=== PATIENT | male | born 1995 | race Two or more races ===

== ENCOUNTER 2018-11-15 08:01 | Emergency (ER) | payer MEDICAID ==
[2018-11-15 08:10] VITALS: BP 131/89
[2018-11-15] MEDS ORDERED: NAPROXEN 250 MG TABLET PO STA (08:12)
--- NOTE | 2018-11-15 08:15 | ED Physician Documentation ---
PD HPI UPPER EXT INJURY - Stated complaint Stated Complaint: HAND PX - Chief complaint Chief Complaint: Ext Problem - History obtained from History obtained from: Patient - History of Present Illness Location: Right, Wrist, Hand Type of injury: Other (No specific injury.) Timing - duration: Weeks (1) Timing - details: Waxing and waning Associated symptoms: Tingling, Swelling Similar symptoms before: Diagnosis (Diagnosed with carpal tunnel syndrome about two years ago.) - Additonal information Additional information: The patient is a 23-year-old male who presents with swelling of his right hand, waxing and waning for the past week. It is worse at night. He notices that his hand goes numb, particularly in the little finger. It is similar to symptoms he had about 2 years ago when he was diagnosed with carpal tunnel syndrome. He is right-hand dominant. 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 Review of Systems Constitutional: denies: Fever Nose: denies: Congestion Throat: denies: Sore throat Cardiac: denies: Chest pain / pressure Respiratory: denies: Dyspnea, Cough GI: denies: Abdominal Pain, Nausea, Vomiting Skin: denies: Rash Musculoskeletal: reports: Extremity swelling (right hand). denies: Neck pain, Back pain Neurologic: reports: Numbness (Intermittently right hand.). denies: Headache PD PAST MEDICAL HISTORY - Past Medical History Neuro: None Endocrine/Autoimmune: None - Present Medications Home Medications: Ambulatory Orders Medication Instructions Recorded Confirmed Naproxen [Naprosyn] 500 mg PO BID #30 tablet 11/15/18 - Allergies Allergies/Adverse Reactions: Allergies Allergy/AdvReac Type Severity Reaction Status Date / Time No Known Drug Allergies Allergy Verified 11/15/18 08:08 PD ED PE NORMAL - Vitals Vital signs reviewed: Yes (normal) - General General: Alert and oriented X 3, Well developed/nourished - HEENT HEENT: Atraumatic - Neck Neck: No adenopathy - Cardiac Cardiac: RRR - Respiratory Respiratory: No respiratory distress, Clear bilaterally - Derm Derm: No rash - Extremities Extremities: No deformity, No tenderness to palpate, Other (There is no obvious swelling detected of the right hand, and no focal tenderness to palpation. Positive Phalen sign. Negative Tinel's test. No motor deficit detected.) - Neuro Neuro: Alert and oriented X 3, No motor deficit, No sensory deficit, Normal speech Results - Vitals Vitals: Oxygen O2 Source Room air - Labs Labs: Laboratory Tests 11/15/18 08:30 TSH 1.78 - Rads (name of study) right wrist Radiology: Prelim report reviewed, EMP read contemporaneously, See rad report (A small broad-based bony spur on the radial side of the distal metaphysis of the radius, without soft tissue swelling. Otherwise negative wrist radiography.) PD MEDICAL DECISION MAKING - ED course Complexity details: reviewed results, re-evaluated patient, considered differential, d/w patient ED course: The patient's presentation is suggestive of carpal tunnel syndrome, although his exam is by no means definitive. X-ray of the right wrist reveals a bone spur on the radial aspect of the distal radius, and it is unclear whether that plays a role in the patient's symptoms. His TSH is normal. Treatment in the emergency department included administration of Naprosyn 500 mg orally, and application of a Velcro wrist splint. I discussed with him symptomatic treatment, outpatient follow-up, as well as potentially worrisome signs or symptoms that should prompt reevaluation in the emergency department. Departure - Departure Disposition: 01 Home, Self Care Clinical Impression: Bone spur, Carpal tunnel syndrome of right wrist Condition: Stable Instructions: ED Carpal Tunnel Follow-Up: [facility] [Provider Group] Prescriptions: Naproxen [Naprosyn] 500 mg PO BID #30 tablet Comments: You can wear the Velcro wrist splint if it provides comfort. Take Naprosyn twice daily as prescribed. Follow-up with orthopedics. Call to schedule a follow-up appointment. Return to the emergency department if you develop increasing pain, persistent numbness or weakness, or otherwise worsening symptoms. Discharge Date/Time: 11/15/18 09:42
--- NOTE | 2018-11-15 08:37 | XRAY Report ---
Reason: numbness, swelling right hand; ? carpal tunnel syn Procedure Date: 11/15/2018 Accession Number: [id number] / [id number] Procedure: XR - Wrist 3 View RT CPT Code: FULL RESULT: EXAM: RIGHT WRIST RADIOGRAPHY EXAM DATE: 11/15/2018 08:25 AM. CLINICAL HISTORY: Numbness, swelling right hand; clinical suspicion for carpal tunnel syn. COMPARISON: None. TECHNIQUE: 3 views. FINDINGS: Bones: There is a broad base bony spur on the radial side of the distal metaphysis of the radius, 3 x 7 mm without associated adjacent soft tissue swelling. No fractures or bony destructive lesion. Joints: No significant degenerative process. No subluxations. Soft Tissues: No soft tissue calcification or soft tissue swelling. IMPRESSION: A small broad-based bony spur on the radial side of the distal metaphysis of the radius without soft tissue swelling; otherwise, negative wrist radiography. RADIA
== END 2018-11-15 09:42 | disposition home or self-care (01) ==
LOC: ED 08:01
DX: M77.8 Other enthesopathies, not elsewhere classified (principal); G56.01 Carpal tunnel syndrome, right upper limb
CPT/HCPCS: 36415; 73110; 84443; 99283; A9270

== ENCOUNTER 2021-01-29 16:25 | Outpatient (CLI) | payer MEDICAID ==
[2021-01-30 02:11] LABS: CHLAMYDIA TRACHOMATIS DNA NEGATIVE (NEGATIVE); NEISSERIA GONORRHOEAE DNA NEGATIVE (NEGATIVE)
[2021-01-31 10:31] LABS: HIV AG/AB 4TH GEN NON-REACTIVE (NON-REACTIVE)
[2021-01-31 12:16] LABS: HEPATITIS C ANTIBODY NON-REACTIVE (NON-REACTIVE)
== END 2021-01-29 16:26 | disposition home or self-care (01) ==
LOC: LAB.N 16:25
PROVIDERS: ATTEND Nurse Practitioner Family
DX: Z11.3 Encounter for screening for infections with a predominantly sexual mode of transmission (principal)
CPT/HCPCS: 36415; 86592; 86803; 87389; 87491; 87591; 87661

== ENCOUNTER 2021-01-29 17:12 | Outpatient (CLI) | payer MEDICAID ==
--- NOTE | 2021-01-29 19:16 | XRAY Report ---
PROCEDURE: Cervical Spine 2 View INDICATIONS: NECK PX TECHNIQUE: 3 view(s) of the cervical spine were acquired. COMPARISON: None. FINDINGS: Bones: No fractures or dislocations to the C7-T1 level. Straightening of normal cervical lordosis i s seen. The lateral masses of C1 appear intact on the odontoid view. No suspicious bony lesions. Soft tissues: No prevertebral soft tissue swelling. IMPRESSION: Straightening of normal cervical lordosis. No compression fracture or spondylolisthesis. Reviewed by: Evert Ozuna MD on 01/29/2021 6:14 PM ZAMZAM Approved by: Evert Ozuna MD on 01/29/2021 6:14 PM ZAMZAM Station ID: [id number]
== END 2021-01-29 17:13 | disposition home or self-care (01) ==
LOC: DI.N 17:12
PROVIDERS: ATTEND Nurse Practitioner Family
DX: M54.2 Cervicalgia (principal); Z11.3 Encounter for screening for infections with a predominantly sexual mode of transmission
CPT/HCPCS: 36415; 86592; 86803; 87389; 87491; 87591; 87661

== ENCOUNTER 2022-08-12 14:28 | Outpatient (CLI) | payer MEDICAID ==
[~2022-08-12 14:28] MED LIST: GADOBUTROL 10 MMOL/10 ML VIAL ONE
[2022-08-12] MEDS ORDERED: GADOBUTROL 10 MMOL/10 ML VIAL IVP ONE (17:08)
--- NOTE | 2022-08-12 18:15 | MRI Report ---
PROCEDURE: BRAIN W/WO INDICATIONS: MIXED HEADACHE CONTRAST: GADAVIST 8.2ML TECHNIQUE: Noncontrast axial T1 spin echo, axial T2 fast spin echo, sagittal and axial FLAIR, coronal T2 fast sp in echo, axial gradient echo, axial diffusion and ADC through the brain. After the administration of contrast, axial and coronal T1 spin echo with fat saturation through the brain. COMPARISON: None. FINDINGS: Image quality: Excellent. CSF spaces: Basal cisterns are patent. No extra-axial fluid collections. Ventricles are normal in size and shape. Brain: No midline shift. No intracranial bleeds or masses. No abnormal intracranial enhancement. There is cerebral volume loss for age. There is periventricular white matter chronic small vessel is chemic change. The brainstem appears normal. Diffusion-weighted images demonstrate no acute ischemi c insults. No chronic ischemic insults. Normal intravascular flow voids are present. Skull and face: Calvarial marrow is normal in signal. Orbits appear normal. Sinuses: Sinuses and mastoids appear clear. IMPRESSION: A cause of headache cannot be seen on these images. No masses or abnormal enhancement can be seen. Reviewed by: Jose Green MD on 08/12/2022 5:13 PM ZAMZAM Approved by: Jose Green MD on 08/12/2022 5:13 PM ZAMZAM Station ID: [id number]
== END 2022-08-12 14:29 | disposition home or self-care (01) ==
LOC: DI 14:28
PROVIDERS: ATTEND Physician Assistant
DX: R51.9 Headache, unspecified (principal)
CPT/HCPCS: 70553; A9585

== ENCOUNTER 2022-12-15 17:28 | Emergency (ER) | payer MEDICAID ==
--- NOTE | 2022-12-15 19:23 | XRAY Report ---
PROCEDURE: Finger(s) RT INDICATIONS: R finger pain vs shelf TECHNIQUE: AP hand, 2 views of the fifth finger(s) acquired. COMPARISON: Right wrist radiographs 11/15/2018. FINDINGS: Bones: No fractures or dislocations. No suspicious bony lesions. Soft tissues: No suspicious soft tissue calcifications. IMPRESSION: No acute osseous abnormality. Reviewed by: Rodrigue Tam MD on 12/15/2022 7:22 PM PST Approved by: Rodrigue Tam MD on 12/15/2022 7:22 PM PST Station ID: [id number]
[2022-12-15] MEDS: LIDOCAINE 2% 10 ML MDV SUBQ ONE ×2 (20:21→20:27)
[2022-12-15] MEDS ORDERED: BUFFERED LIDOCAINE 10 ML SYRINGE SUBQ STA (20:24)
[2022-12-15 20:27] VITALS: BP 135/81
--- NOTE | 2022-12-15 20:56 | ED Physician Documentation ---
PD HPI UPPER EXT INJURY - Stated complaint Stated Complaint: Finger Pain - Chief complaint Chief Complaint: Ext Problem - History obtained from History obtained from: Patient - History of Present Illness Location: Right, Finger (5th) Pain level max: 7 Pain level now: 6 Improved by: Nothing Worsened by: Moving, Palpating Associated symptoms: No: Weakness, Numbness, Tingling Contributing factors: No: Anticoagulated - Additonal information Additional information: 27-year-old male presents to the emergency department with a crush injury to the distal tip of the right index finger. This occurred several hours prior to arrival. He is continuing to have pain. Patient is right handed. Review of Systems Constitutional: denies: Fever, Chills Skin: denies: Rash PD PAST MEDICAL HISTORY - Past Medical History Past Medical History: No Neuro: None Endocrine/Autoimmune: None - Past Surgical History Past Surgical History: Yes - Present Medications Home Medications: Ambulatory Orders Medication Instructions Recorded Confirmed No Known Home Medications 12/15/22 12/15/22 - Allergies Allergies/Adverse Reactions: Allergies Allergy/AdvReac Type Severity Reaction Status Date / Time No Known Drug Allergies Allergy Verified 11/15/18 08:08 - Social History Does the pt smoke?: Yes Smoking Status: Current every day smoker Substance Use and Type: Marijuana - Immunizations Immunizations are current?: Yes PD ED PE NORMAL - Vitals Vital signs reviewed: Yes - General General: Alert and oriented X 3, No acute distress - Derm Derm: Warm and dry - Extremities Extremities: Other (R 5th digit - subungual hematoma present covering the entire nail. NVI. no deformity. FROM. ) - Neuro Neuro: Alert and oriented X 3 Results - Vitals Vitals: Vital Signs - 24 hr 12/15/22 12/15/22 17:38 20:26 Temperature 36.5 C 36.6 C Heart Rate 65 62 Respiratory 12 16 Rate Blood Pressure 129/80 135/81 H O2 Saturation 100 98 Oxygen O2 Source Room air - Rads (name of study) R 5th digit xray Radiology: Final report received, See rad report Procedures - General procedure General procedure: R 5th digit - Lidocaine was used as a digital block on the right fifth digit. Excellent anesthesia achieved. Electrocautery was used to trephinate the nail and the subungual hematoma was evacuated. Patient tolerated well. No complications. PD Medical Decision Making - ED course Complexity details: considered differential, d/w patient ED course: Patient with a right 5th digit subungual hematoma. This was evacuated. Tolerated well. No acute findings on x-ray. No evidence of fracture. Will continue warm water soaks at home and infection precautions given.Patient counseled regarding signs and symptoms for which I believe an urgent reevaluation would be necessary. Patient with good understanding of and agreement to plan and is comfortable going home at this time. Departure - Departure Disposition: 01 Home, Self Care Clinical Impression: Subungual hematoma of finger Qualifiers: Encounter type: initial encounter Qualified Code(s): S60.10XA - Contusion of unspecified finger with damage to nail, initial encounter Condition: Good Instructions: ED Hematoma Subungual Follow-Up: Phoebe Zaidi PA [Primary Care Provider] - As Needed Comments: Please follow-up with your doctor as needed for further care. Please soak the area in warm water 2-3 times daily to encourage it to continue to drain. You can use Motrin or Tylenol as needed for pain. Return for any redness, swelling or drainage from the wound. Discharge Date/Time: 12/15/22 21:07
== END 2022-12-15 21:07 | disposition home or self-care (01) ==
LOC: ED 17:28
DX: S60.10XA Contusion of unspecified finger with damage to nail, initial encounter (principal); X58.XXXA Exposure to other specified factors, initial encounter; F17.200 Nicotine dependence, unspecified, uncomplicated
CPT/HCPCS: 11740; 80053; 83690; 85025; 99283

== ENCOUNTER 2023-05-29 14:24 | Emergency (ER) | payer MEDICAID ==
[2023-05-29 14:37] VITALS: BP 144/76; O2SAT 98
[2023-05-29] MEDS ORDERED: CHERRY SYRUP 10 ML UDC PO ONE (15:05)
[2023-05-29] MEDS ORDERED: DEXAMETHASONE 10 MG/ML VIAL PO STA (15:06)
--- NOTE | 2023-05-29 15:06 | ED Physician Documentation ---
History of Present Illness - Stated complaint Stated Complaint: C+/N/ABD PX/CHILLS - Chief complaint Chief Complaint: Resp - History obtained from History obtained from: Patient - Additonal information Additional information: Otherwise healthy young person got sick 3 days ago with symptomatic COVID after traveling. His domestic partner is also sick with COVID. Symptoms include laryngitis, congestion not responsive to Sudafed and nausea and diarrhea. No comorbidities. PD PAST MEDICAL HISTORY - Past Medical History Neuro: None Endocrine/Autoimmune: None - Past Surgical History Past Surgical History: Yes - Present Medications Home Medications: Ambulatory Orders Medication Instructions Recorded Confirmed Ibuprofen [Motrin] 800 mg PO Q8H PRN #30 tablet 05/29/23 Loperamide [Imodium] 2 mg PO QID PRN #10 cap 05/29/23 Ondansetron Odt [Zofran] 4 mg TL Q6H PRN #10 tablet 05/29/23 - Allergies Allergies/Adverse Reactions: Allergies Allergy/AdvReac Type Severity Reaction Status Date / Time No Known Drug Allergies Allergy Verified 11/15/18 08:08 - Social History Does the pt smoke?: Yes Smoking Status: Current every day smoker - Immunizations Immunizations are current?: Yes PD ED PE NORMAL - Vitals Vital signs reviewed: Yes - General General: Alert and oriented X 3, No acute distress - HEENT HEENT: Pharynx benign - Neck Neck: Supple, no meningeal sign, No bony TTP - Cardiac Cardiac: RRR, No murmur - Respiratory Respiratory: No respiratory distress, Clear bilaterally - Abdomen Abdomen: Non tender - Derm Derm: No rash - Neuro Neuro: Alert and oriented X 3, Normal speech Results - Vitals Vitals: Vital Signs - 24 hr 05/29/23 14:33 Temperature 36 C L Heart Rate 76 Respiratory 20 Rate Blood Pressure 144/76 H O2 Saturation 98 Oxygen O2 Source Room air PD Medical Decision Making - ED course ED course: We discussed paxlovid but after discussion he would like to forego it and just get symptomatic treatments. He does need a note for work and was given a dose of Decadron here. This was for the laryngitis. Departure - Departure Disposition: Home, Self Care Clinical Impression: COVID-19 Condition: Good Record reviewed to determine appropriate education?: Yes Instructions: ED Viral Syndrome Prescriptions: Loperamide [Imodium] 2 mg PO QID PRN #10 cap PRN Reason: Diarrhea Ibuprofen [Motrin] 800 mg PO Q8H PRN #30 tablet PRN Reason: PAIN &/OR FEVER Ondansetron Odt [Zofran] 4 mg TL Q6H PRN #10 tablet PRN Reason: Nausea / Vomiting Comments: Return for new or worsening symptoms. Follow-up with your doctor if not improving over the next 3 to 5 days. Forms: PCP List, Activity restrictions
== END 2023-05-29 15:18 | disposition home or self-care (01) ==
LOC: ED 14:24
DX: U07.1 COVID-19 (principal); F17.200 Nicotine dependence, unspecified, uncomplicated
CPT/HCPCS: 99282; 99283; A9270

== ENCOUNTER 2024-03-30 22:02 | Emergency (ER) | payer BC, MEDICAID ==
[2024-03-30 22:16] VITALS: BP 141/89; O2SAT 95
--- NOTE | 2024-03-30 22:28 | ED Physician Documentation ---
History of Present Illness - Stated complaint Stated Complaint: SOA - Chief complaint Chief Complaint: Heent - History obtained from History obtained from: Patient - Additonal information Additional information: Otherwise healthy 28-year-old male has been sick for about 2 weeks with minimally productive cough and shortness of breath that is worsening. He has no personal history of asthma but his mother has not. His brother was sick recently with a similar illness. No fevers. PD PAST MEDICAL HISTORY - Past Medical History Past Medical History: No Neuro: None Endocrine/Autoimmune: None - Past Surgical History Past Surgical History: Yes - Present Medications Home Medications: Ambulatory Orders Medication Instructions Recorded Confirmed Ibuprofen [Motrin] 800 mg PO Q8H PRN #30 tablet 05/29/23 Albuterol Sulf [Ventolin Hfa 1 - 2 puffs INH Q4HR PRN #1 each 03/30/24 Inhaler] guaiFENesin/CODEINE [Robitussin AC] 5 - 10 ml PO Q6H PRN #120 ml 03/30/24 predniSONE [Deltasone] 20 mg PO [id number] #21 tab 03/30/24 - Allergies Allergies/Adverse Reactions: Allergies Allergy/AdvReac Type Severity Reaction Status Date / Time No Known Drug Allergies Allergy Verified 03/30/24 22:06 - Social History Does the pt smoke?: Yes Smoking Status: Current every day smoker Does the pt drink ETOH?: Yes - Immunizations Immunizations are current?: Yes PD ED PE NORMAL - Vitals Vital signs reviewed: Yes - General General: Alert and oriented X 3 (He actually looks mildly breathless) - HEENT HEENT: Pharynx benign - Neck Neck: Supple, no meningeal sign, No bony TTP - Cardiac Cardiac: RRR, No murmur - Respiratory Respiratory: Other (Mildly breathless but speaking in full sentences with diffuse expiratory wheezes, no focal findings.) - Extremities Extremities: No edema, No calf tenderness / cord - Neuro Neuro: Alert and oriented X 3 Results - Vitals Vitals: Vital Signs - 24 hr 03/30/24 03/30/24 03/30/24 22:06 22:17 22:56 Temperature 36.3 C L Heart Rate 86 Respiratory 17 17 17 Rate Blood Pressure 141/89 H O2 Saturation 95 Oxygen O2 Source Room air - Rads (name of study) 2 view chest x-ray is unremarkable Relevant Findings:: Final report received, EMP independent interpretation of test PD Medical Decision Making - ED course ED course: 28-year-old presents with acute wheezy bronchitis. Chest x-ray is clear and nothing focal on the exam to suggest a bacterial etiology. He was administered albuterol and steroids and after the albuterol he was feeling better. Still a bit wheezy but declined a second neb. Departure - Departure Disposition: 01 Home, Self Care Clinical Impression: Acute wheezy bronchitis Condition: Good Record reviewed to determine appropriate education?: Yes Instructions: ED Bronchitis Asthmatic Prescriptions: Albuterol Sulf [Ventolin Hfa Inhaler] 1 - 2 puffs INH Q4HR PRN #1 each PRN Reason: Shortness Of Air/Wheezing predniSONE [Deltasone] 20 mg PO [id number] #21 tab guaiFENesin/CODEINE [Robitussin AC] 5 - 10 ml PO Q6H PRN #120 ml PRN Reason: Cough Comments: I sent your prescription electronically to [facility] in [place]. Do not drink or drive while taking codeine as it can be slightly sedating. Call your doctor to arrange a follow-up appointment, make the next available appointment. In the interim, return anytime if worse or if new symptoms develop. Forms: PCP List
[2024-03-30] MEDS: ALBUTEROL NEB 2.5 MG/3 ML INH STA (22:30)
[2024-03-30] MEDS: predniSONE 20 MG TABLET PO STA (22:39)
--- NOTE | 2024-03-30 22:56 | XRAY Report ---
PROCEDURE: Chest 2V INDICATIONS: cough wheeze TECHNIQUE: 2 views of the chest were acquired. COMPARISON: None. FINDINGS: Surgical changes and devices: None. Lungs and pleura: No pleural effusions or pneumothorax. Lungs are clear. Mediastinum: Mediastinal contours appear normal. Heart size is normal. Bones and chest wall: No suspicious bony lesions. Overlying soft tissues appear unremarkable. IMPRESSION: No acute cardiopulmonary process. Reviewed by: Migdalia Singh MD, PhD on 03/30/2024 10:54 PM PDT Approved by: Migdalia Singh MD, PhD on 03/30/2024 10:54 PM PDT Station ID: [id number]
[2024-03-30] MEDS: guaiFENesin/CODEINE 5 ML UDC PO STA (23:01)
== END 2024-03-30 23:10 | disposition home or self-care (01) ==
LOC: ED 22:02
DX: J20.9 Acute bronchitis, unspecified (principal); F17.200 Nicotine dependence, unspecified, uncomplicated
CPT/HCPCS: 71046; 94640; 99283; 99284; A9270; J7512